=== PATIENT | female | born 1960 | race Caucasian/White ===

== ENCOUNTER → 2017-07-28 12:14 | Outpatient (CLI) | payer OTHER, SELFPAY ==
[2017-07-28 14:40] LABS: Absolute Lymphocyte Count 2.04 X10^3/ul (0.83-4.51); Absolute Neutrophil Count 5.6 X10^3/uL (2.0-7.7); Basophil# 0.04 X10^3/uL; Basophil% 0.5 % (0-1); Eosinophil# 0.27 X10^3/uL; Eosinophils% 3.2 % (0-5); Hematocrit 42.7 % (37-47); Hemoglobin 13.8 g/dl (12.0-15.0); Lymphocyte # 2.04 X10^3/ul (4.0); Lymphocyte % 24.1 % (19-41); Mean Corp Hgb Conc 32.3 g/gl (32-36); Mean Corpuscular Hgb 31.5 pg (27.0-32.0); Mean Corpuscular Volume 97.5 fL (81-99); Mean Platelet Vol. 10.3 fl (6.2-12.0); Monocyte% 5.9 % (0-10); Neutrophil # 5.59 X10^3/uL (2.7-7.7); Neutrophil % 65.8 % (47-70); POSITIVE COUNT NO; POSITIVE DIFFERENTIAL NO; POSITIVE MORPHOLOGY NO; Platelet Count 316 K/mm3 (150-450); RBC Distribution Width CV 13.9 % (11.6-14.6); Red Blood Count 4.38 M/mm3 (4.2-5.4); White Blood Count 8.5 K/mm3 (4.4-11.0)
[2017-07-28 14:58] LABS: ALB/GLOB Ratio 0.8 RATIO (0.9-2.4); AST(SGOT) 20 U/L (15-37); Alanine Aminotransfer ALT/SGPT 28 U/L (13-56); Albumin, Serum 3.4 g/dL (3.2-5.0); Alkaline Phosphatase 104 U/L (45-117); Anion Gap 5 (5-15); BUN 15 mg/dL (7-18); BUN/Creat Ratio 21.4 RATIO (10-20); Calcium,Total 8.4 mg/dL (8.5-10.1); Chloride 103 mmol/L (98-107); EST Glomerular Filtration Rate 91 mL/min (>60); Est Glom Filt Rate - Afr Amer 110 mL/min (>60); Glucose 131 mg/dL (74-106); Protein, Total 7.4 g/dL (6.4-8.2); Sodium Level 139 mmol/L (136-145)
== END ==
PROVIDERS: Family Provider Family Medicine; PCP Family Medicine; Visit Provider Internal Medicine Rheumatology
DX: M06.4 Inflammatory polyarthropathy (principal); M72.2 Plantar fascial fibromatosis; M15.9 Polyosteoarthritis, unspecified; Z79.899 Other long term (current) drug therapy
CPT/HCPCS: 36415; 80053; 85025

== ENCOUNTER → 2017-10-04 14:50 | Outpatient (CLI) | payer OTHER, SELFPAY ==
--- NOTE | 2017-10-04 14:50 | DT_ITS ---
This patient was seen during an EMR downtime September 27, 2017 - October 04, 2017. This patient may have a combination of paper and electronic documentation or all paper documentation. All documentation is viewable within the e-chart portion of [employer] for each patient visit.
[2017-10-04 16:03] LABS: Absolute Lymphocyte Count 1.86 X10^3/ul (0.83-4.51); Absolute Neutrophil Count 3.6 X10^3/uL (2.0-7.7); Basophil# 0.02 X10^3/uL; Basophil% 0.3 % (0-1); Eosinophil# 0.22 X10^3/uL; Eosinophils% 3.7 % (0-5); Hematocrit 43.6 % (37-47); Hemoglobin 13.7 g/dl (12.0-15.0); Lymphocyte # 1.86 X10^3/ul (4.0); Lymphocyte % 31.2 % (19-41); Mean Corp Hgb Conc 31.4 g/gl (32-36); Mean Corpuscular Hgb 30.5 pg (27.0-32.0); Mean Corpuscular Volume 97.1 fL (81-99); Mean Platelet Vol. 9.8 fl (6.2-12.0); Monocyte# 0.29 X10^3/uL; Monocyte% 4.9 % (0-10); Neutrophil # 3.57 X10^3/uL (2.7-7.7); Neutrophil % 59.7 % (47-70); Platelet Count 287 K/mm3 (150-450); RBC Distribution Width CV 14.1 % (11.6-14.6); RBC Distribution Width SD 50.3 fl (35.1-43.9); Red Blood Count 4.49 M/mm3 (4.2-5.4)
[2017-10-04 16:07] LABS: POSITIVE COUNT NO; POSITIVE DIFFERENTIAL NO; POSITIVE MORPHOLOGY NO
[2017-10-04 16:24] LABS: ALB/GLOB Ratio 0.9 RATIO (0.9-2.4); AST(SGOT) 15 U/L (15-37); Alanine Aminotransfer ALT/SGPT 23 U/L (13-56); Albumin, Serum 3.5 g/dL (3.2-5.0); Alkaline Phosphatase 101 U/L (45-117); Anion Gap 7 (5-15); BUN 14 mg/dL (7-18); BUN/Creat Ratio 18.8 RATIO (10-20); Calcium,Total 8.2 mg/dL (8.5-10.1); Chloride 106 mmol/L (98-107); Creatinine, Serum 0.74 mg/dL (0.55-1.02); EST Glomerular Filtration Rate 85 mL/min (>60); Est Glom Filt Rate - Afr Amer 103 mL/min (>60); Globulin 3.7 g/dL (2.2-4.2); Glucose 131 mg/dL (74-106); Potassium 3.8 mmol/L (3.5-5.1); Protein, Total 7.2 g/dL (6.4-8.2); Sodium Level 142 mmol/L (136-145)
== END ==
PROVIDERS: Family Provider Family Medicine; PCP Family Medicine; Visit Provider Internal Medicine Rheumatology
DX: M06.4 Inflammatory polyarthropathy (principal); Z79.899 Other long term (current) drug therapy; M15.9 Polyosteoarthritis, unspecified; M72.2 Plantar fascial fibromatosis; M17.0 Bilateral primary osteoarthritis of knee
CPT/HCPCS: 36415; 80053; 85025

== ENCOUNTER → 2018-01-03 16:24 | Outpatient (CLI) | payer OTHER, SELFPAY ==
[2018-01-03 18:05] LABS: Absolute Lymphocyte Count 2.43 X10^3/ul (0.83-4.51); Basophil# 0.03 X10^3/uL; Basophil% 0.3 % (0-1); Eosinophil# 0.15 X10^3/uL; Eosinophils% 1.6 % (0-5); Hematocrit 43.8 % (37-47); Lymphocyte # 2.43 X10^3/ul (4.0); Lymphocyte % 26.1 % (19-41); Mean Corpuscular Hgb 31.7 pg (27.0-32.0); Mean Corpuscular Volume 99.3 fL (81-99); Mean Platelet Vol. 9.8 fl (6.2-12.0); Monocyte# 0.68 X10^3/uL; Monocyte% 7.3 % (0-10); Neutrophil % 64.4 % (47-70); POSITIVE COUNT NO; POSITIVE DIFFERENTIAL NO; POSITIVE MORPHOLOGY NO; Platelet Count 323 K/mm3 (150-450); RBC Distribution Width CV 14.2 % (11.6-14.6); RBC Distribution Width SD 51.5 fl (35.1-43.9); Red Blood Count 4.41 M/mm3 (4.2-5.4); White Blood Count 9.3 K/mm3 (4.4-11.0)
[2018-01-03 18:38] LABS: ALB/GLOB Ratio 0.8 RATIO (0.9-2.4); AST(SGOT) 29 U/L (15-37); Alanine Aminotransfer ALT/SGPT 49 U/L (13-56); Albumin, Serum 3.4 g/dL (3.2-5.0); Alkaline Phosphatase 105 U/L (45-117); Anion Gap 10 (5-15); BUN 19 mg/dL (7-18); BUN/Creat Ratio 25.3 RATIO (10-20); Calcium,Total 8.6 mg/dL (8.5-10.1); Chloride 106 mmol/L (98-107); Creatinine, Serum 0.75 mg/dL (0.55-1.02); EST Glomerular Filtration Rate 84 mL/min (>60); Est Glom Filt Rate - Afr Amer 102 mL/min (>60); Glucose 111 mg/dL (74-106); Potassium 4.1 mmol/L (3.5-5.1); Protein, Total 7.4 g/dL (6.4-8.2); Sodium Level 144 mmol/L (136-145)
== END ==
PROVIDERS: Family Provider Family Medicine; PCP Family Medicine; Visit Provider Internal Medicine Rheumatology
DX: M06.4 Inflammatory polyarthropathy (principal); M72.2 Plantar fascial fibromatosis; M17.0 Bilateral primary osteoarthritis of knee; Z79.899 Other long term (current) drug therapy
CPT/HCPCS: 36415; 80053; 85025

== ENCOUNTER → 2018-03-31 14:14 | Outpatient (CLI) | payer OTHER, SELFPAY ==
[2018-03-31 15:26] LABS: Absolute Lymphocyte Count 1.86 X10^3/ul (0.83-4.51); Absolute Neutrophil Count 3.5 X10^3/uL (2.0-7.7); Basophil# 0.03 X10^3/uL; Basophil% 0.5 % (0-1); Eosinophil# 0.12 X10^3/uL; Hematocrit 43.3 % (37-47); Hemoglobin 14.2 g/dl (12.0-15.0); Lymphocyte # 1.86 X10^3/ul (4.0); Lymphocyte % 31.4 % (19-41); Mean Corp Hgb Conc 32.8 g/gl (32-36); Mean Corpuscular Hgb 32.1 pg (27.0-32.0); Mean Platelet Vol. 9.7 fl (6.2-12.0); Monocyte# 0.36 X10^3/uL; Monocyte% 6.1 % (0-10); Neutrophil # 3.54 X10^3/uL (2.7-7.7); Neutrophil % 59.7 % (47-70); Platelet Count 310 K/mm3 (150-450); RBC Distribution Width CV 13.8 % (11.6-14.6); RBC Distribution Width SD 48.6 fl (35.1-43.9); Red Blood Count 4.42 M/mm3 (4.2-5.4); White Blood Count 5.9 K/mm3 (4.4-11.0)
[2018-03-31 15:30] LABS: POSITIVE COUNT NO; POSITIVE DIFFERENTIAL NO; POSITIVE MORPHOLOGY NO
[2018-03-31 15:54] LABS: ALB/GLOB Ratio 0.9 RATIO (0.9-2.4); AST(SGOT) 17 U/L (15-37); Alanine Aminotransfer ALT/SGPT 27 U/L (13-56); Albumin, Serum 3.5 g/dL (3.2-5.0); Alkaline Phosphatase 90 U/L (45-117); Anion Gap 6 (5-15); BUN 14 mg/dL (7-18); BUN/Creat Ratio 19.4 RATIO (10-20); Calcium,Total 8.9 mg/dL (8.5-10.1); Chloride 105 mmol/L (98-107); Creatinine, Serum 0.72 mg/dL (0.55-1.02); EST Glomerular Filtration Rate 88 mL/min (>60); Est Glom Filt Rate - Afr Amer 106 mL/min (>60); Glucose 100 mg/dL (74-106); Potassium 4.1 mmol/L (3.5-5.1); Protein, Total 7.5 g/dL (6.4-8.2); Sodium Level 142 mmol/L (136-145)
== END ==
PROVIDERS: Family Provider Family Medicine; PCP Family Medicine; Referring Provider Internal Medicine Rheumatology; Visit Provider Internal Medicine Rheumatology
DX: M06.4 Inflammatory polyarthropathy (principal); M72.2 Plantar fascial fibromatosis; M17.0 Bilateral primary osteoarthritis of knee; Z79.899 Other long term (current) drug therapy
CPT/HCPCS: 36415; 80053; 85025

== ENCOUNTER → 2018-07-04 14:51 | Outpatient (CLI) | payer OTHER, SELFPAY ==
[2018-07-11 12:27] LABS: HPV Reflexed? NOT INDICATED
== END ==
PROVIDERS: Visit Provider Obstetrics & Gynecology
DX: Z12.4 Encounter for screening for malignant neoplasm of cervix (principal)
CPT/HCPCS: 88175; G0145

== ENCOUNTER → 2018-07-18 14:43 | Outpatient (CLI) | payer OTHER, SELFPAY ==
[2018-07-18 17:47] LABS: Absolute Lymphocyte Count 2.33 X10^3/ul (0.83-4.51); Absolute Neutrophil Count 5.3 X10^3/uL (2.0-7.7); Basophil# 0.03 X10^3/uL; Basophil% 0.4 % (0-1); Eosinophil# 0.14 X10^3/uL; Eosinophils% 1.7 % (0-5); Hematocrit 43.6 % (37-47); Hemoglobin 13.9 g/dl (12.0-15.0); Lymphocyte # 2.33 X10^3/ul (4.0); Lymphocyte % 27.9 % (19-41); Mean Corp Hgb Conc 31.9 g/gl (32-36); Mean Corpuscular Hgb 31.4 pg (27.0-32.0); Mean Corpuscular Volume 98.4 fL (81-99); Monocyte# 0.51 X10^3/uL; Monocyte% 6.1 % (0-10); Neutrophil # 5.31 X10^3/uL (2.7-7.7); Neutrophil % 63.7 % (47-70); Platelet Count 319 K/mm3 (150-450); RBC Distribution Width CV 14.1 % (11.6-14.6); RBC Distribution Width SD 50.7 fl (35.1-43.9); Red Blood Count 4.43 M/mm3 (4.2-5.4); White Blood Count 8.3 K/mm3 (4.4-11.0)
[2018-07-18 18:04] LABS: POSITIVE COUNT NO; POSITIVE DIFFERENTIAL NO; POSITIVE MORPHOLOGY NO
[2018-07-18 18:09] LABS: ALB/GLOB Ratio 0.9 RATIO (0.9-2.4); AST(SGOT) 21 U/L (15-37); Alanine Aminotransfer ALT/SGPT 59 U/L (13-56); Albumin, Serum 3.5 g/dL (3.2-5.0); Alkaline Phosphatase 90 U/L (45-117); Anion Gap 3 (5-15); BUN 16 mg/dL (7-18); BUN/Creat Ratio 18.6 RATIO (10-20); Calcium,Total 8.3 mg/dL (8.5-10.1); Chloride 105 mmol/L (98-107); Creatinine, Serum 0.86 mg/dL (0.55-1.02); EST Glomerular Filtration Rate 72 mL/min (>60); Est Glom Filt Rate - Afr Amer 87 mL/min (>60); Globulin 3.8 g/dL (2.2-4.2); Glucose 96 mg/dL (74-106); Potassium 3.7 mmol/L (3.5-5.1); Protein, Total 7.3 g/dL (6.4-8.2); Sodium Level 138 mmol/L (136-145)
== END ==
PROVIDERS: Family Provider Family Medicine; PCP Family Medicine; Referring Provider Internal Medicine Rheumatology; Visit Provider Internal Medicine Rheumatology
DX: M06.4 Inflammatory polyarthropathy (principal); M72.2 Plantar fascial fibromatosis; M17.0 Bilateral primary osteoarthritis of knee; Z79.899 Other long term (current) drug therapy
CPT/HCPCS: 36415; 80053; 85025

== ENCOUNTER → 2018-08-01 | Outpatient (CLI) | payer OTHER, SELFPAY ==
--- NOTE | 2018-08-01 13:02 | BI_ITS ---
MAMMOGRAPHY - BILATERAL SCREENING REASON FOR EXAM: Female, 57 years old. Routine annual screening examination. PERTINENT HISTORY: Non-contributory. TECHNIQUE: Digital bilateral breast meek (3D mammographic acquisition) in the CC and MLO projections. 2-D mediolateral oblique (MLO) and craniocaudad (CC) views of both breasts were obtained. CAD: Full Field Digital Mammography with Computer Added Detection was performed. COMPARISON: Comparison is made with prior study dated November 25, 2016 and February 27, 2015. FINDINGS: Breast Composition: There are scattered areas of fibroglandular density. There are no dominant masses or suspicious calcifications. Stable benign-appearing bilateral axillary lymph nodes. No other significant abnormalities are identified. There has been no significant change since the prior study. BI/SCREENING MAMM (CAD), BILAT IMPRESSION: Stable bilateral screening mammogram. Yearly follow-up mammogram recommended. (A) ASSESSMENT CATEGORY: BIRADS Category 2: Benign. A letter regarding these results will be sent to the patient by the facility within 30 days. Approximately 10% of breast cancers are not detected by mammography. A normal mammogram should not delay biopsy of a clinically suspicious abnormality. [id number] Electronically Signed: Sherif Hawkins, at 15:59 EDT , Service support ,
== END | disposition home or self-care (01) ==
LOC: OPBI 13:01
PROVIDERS: Family Provider Family Medicine; PCP Family Medicine; Referring Provider Obstetrics & Gynecology; Visit Provider Obstetrics & Gynecology
DX: Z12.31 Encounter for screening mammogram for malignant neoplasm of breast (principal)
CPT/HCPCS: 77063; 77067

== ENCOUNTER → 2019-08-16 | Outpatient (CLI) | payer OTHER, SELFPAY | END | disposition home or self-care (01) | PROVIDERS: PCP Family Medicine; Referring Provider Otolaryngology; Visit Provider Otolaryngology | DX: R05 Cough (principal) | CPT/HCPCS: 87070; 87077; 87106; 87107; 87205 ==

== ENCOUNTER 2019-08-18 11:09 | Emergency (ER) | payer OTHER, SELFPAY ==
[2019-08-18] VITALS (7 sets, daily range): BP systolic 144–192; BP diastolic 75–114; PULSE 89–113; RESP 15–23; TEMP 36.7–36.9; O2SAT 93–97; BMI 39.1
--- NOTE | 2019-08-18 11:39 | EKG12_ITS ---
Test Reason : COUGH Blood Pressure : / mmHG Vent. Rate : 089 BPM Atrial Rate : 089 BPM P-R Int : 170 ms QRS Dur : 078 ms QT Int : 382 ms P-R-T Axes : 062 035 022 degrees QTc Int : 464 ms Normal sinus rhythm Normal ECG Confirmed by JOE VALVERDE, JANAE ([id number]), photographic editor AUDREY ARNOLD ([id number]) on 08/21/2019 10:08:46 AM Referred By: YISEL Confirmed By:JANAE DIAZ MD
--- NOTE | 2019-08-18 11:39 | RAD_ITS ---
STUDY: X-RAY CHEST REASON FOR EXAM: Female, 58 years old. COUGH,SOB X 1 WEEK TECHNIQUE: Single AP portable view of the chest. COMPARISON: None. FINDINGS: EKG electrodes are seen. The lungs are clear and expanded. There is no demonstrated pleural abnormality. Normal size heart. Normal mediastinum and cristine. Normal visualized pulmonary arteries. Normal visualized aortic arch and descending thoracic aorta. There are diffuse degenerative changes of the visualized thoracic spine. Evidence of prior right rotator cuff surgery. There is no demonstrated abnormality of the visualized soft tissue structures of the upper abdomen. RAD/Chest 1 View (Portable) IMPRESSION: No acute abnormalities. Electronically Signed: Sherif Hawkins, at 13:12 EDT , Service support ,
[2019-08-18 12:32] LABS: Absolute Lymphocyte Count 0.95 X10^3/uL (0.83-4.51); Absolute Neutrophil Count 3.8 X10^3/uL (2.0-7.7); Basophil# 0.04 X10^3/uL; Basophil% 0.7 % (0-1); Eosinophil# 0.62 X10^3/uL; Eosinophils% 10.7 % (0-5); Hematocrit 47.2 % (37-47); Hemoglobin 15.3 g/dL (12.0-15.0); Lymphocyte # 0.95 X10^3/ul (4.0); Lymphocyte % 16.4 % (19-41); Mean Corp Hgb Conc 32.4 g/dL (32-36); Mean Corpuscular Volume 92.5 fL (81-99); Mean Platelet Vol. 9.5 fl (6.2-12.0); Monocyte# 0.38 X10^3/uL; Monocyte% 6.6 % (0-10); NRBC Flagged by Analyzer 0 % (0-5); Neutrophil # 3.78 X10^3/uL (2.7-7.7); Neutrophil % 65.3 % (47-70); Platelet Count 308 K/mm3 (150-450); RBC Distribution Width SD 44.2 fl (35.1-43.9); White Blood Count 5.8 K/mm3 (4.4-11.0)
[2019-08-18 12:36] LABS: Lactic Acid 1.5 mmol/L (0.4-1.9)
[2019-08-18 12:39] LABS: Anion Gap 4 (5-15); BUN 12 mg/dL (7-18); BUN/Creat Ratio 13.8 RATIO (10-20); Chloride 104 mmol/L (98-107); Creatinine, Serum 0.87 mg/dL (0.55-1.02); EST Glomerular Filtration Rate 71 mL/min (>60); Est Glom Filt Rate - Afr Amer 86 mL/min (>60); Estimated Creatinine Clearance 52.54 ml/min; Glucose 144 mg/dL (74-106); Potassium 3.7 mmol/L (3.5-5.1); Sodium Level 138 mmol/L (136-145)
[2019-08-18 13:05] LABS: BNP,B-Type NATRIURETIC PEPTIDE 4.1 pg/mL (0-100)
[2019-08-18] MEDS: Ipratropium/Albuterol Sulfate 3 ML AMPUL.NEB INHALATION (13:25)
[2019-08-18] MEDS: MethylPREDNISolone 125 MG/2 ML Vial IV (13:59)
[2019-08-18] MEDS: predniSONE 20 MG Tablet 40 MG PO (15:22)
[2019-08-18] MEDS: Azithromycin 250 MG Tablet 500 MG PO (15:22)
[2019-08-18] MEDS: Doxycycline 100 MG CAPSULE PO (15:29)
--- NOTE | 2019-08-18 15:42 | ED.DCSUM_ITS ---
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 She denies any history of lung problems. No asthma or COPD. She does not smoke. However, she reports she has a cough that began 3 weeks ago. It is productive of brown sputum without blood. She reports that she has been wheezing and felt very short of breath. Patient complains of an upper chest pressure that is been constant for the past 2 weeks. States is increased with the breaths because it makes me feel like I am going to cough. It is 8 out of 10 currently and at worst. Patient reports she is also had sinus drainage for the past 2 weeks. She began Omnicef 2 days ago for sinusitis. She denies any fever or chills. 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 She has had sick contacts at work, she does not know about exposure to coronavirus. Physical Examination: Vitals: Stable. Afebrile. General: Well-nourished and well-developed. Head: Normocephalic atraumatic. Neck: Supple, no lymphadenopathy. No JVD. Nontender. Cardiovascular: Regular rate and rhythm. No murmurs. Respiratory: Mild respiratory distress with moderate wheezing bilaterally. Abdominal: Soft, nontender, nondistended, normal bowel sounds. No guarding, rebound, or peritoneal signs. Back: Nontender. Extremities: Nontender, no edema. Skin: Normal color, no rash. Neurologic: Alert and oriented ?3. Cranial nerves II through XII are intact. Normal strength and sensation. Psych: Normal affect. Test Results: EKG is sinus at [address] changes. Troponin is negative. BNP is 4.1. Influenza is negative. Respiratory panel is negative. Chem-7 shows a glucose 144. Lactic acid is 1.5. CBC shows an H&H of 15.3 and 47.2. Lymphocytes of 16 and eosinophils of 11. Clinical Impression(s) from Imaging Studies Chest X-Ray 08/18/19 11:39 IMPRESSION: No acute abnormalities. Electronically Signed: Sherif Hawkins, at 13:12 EDT , Service support , Emergency Department Course and Treatment: Patient was given albuterol and Atrovent aerosols. She is given Solu-Medrol IV and doxycycline p.o. She was discussed with the [facility]. Unfortunately she does not meet criteria for testing for coronavirus. However, after discussion with the nurse malted milk supervisor in the emergency department the [facility] 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 This was reviewed on up-to-date and given the possibility of chlamydia psittacosis she was changed from Zithromax to doxycycline. Treatment Plan: The patient was discussed with Dr. Saleh. He states that he would be happy to see her in the lung clinic next week. He would like her to be placed on Symbicort. She also given a prescription for prednisone, doxycycline, and an albuterol MDI. Instructed to return the emerge part for any worsening symptoms. Disposition: To home in improved and stable condition. Impression: 1. URI. 2. Bronchospasm. This note was generated with [employer] dictation software. It may contain incorrect words, spelling, and punctuation that were not noted in review of the chart prior to signing ED Disposition - Plan for ED Patient: Disposition: Home or Assisted Living Instructions: ED Upper Resp Infec Abx Tx Prescriptions: Prednisone [Deltasone] 40 mg PO DAILY #10 tab Prescription Printed Doxycycline 100 mg PO BID #14 cap Prescription Printed Budesonide/Formoterol Fumarate [Symbicort 80-4.5 Mcg Inhaler] 1 puff IH BID #1 [email or web address] Prescription Printed Referrals: Duong Saleh DO [STAFF PHYSICIAN] - 3-5 Days
== END 2019-08-18 16:04 | disposition home or self-care (01) ==
LOC: ED 12:10
PROVIDERS: Emergency Provider Emergency Medicine
DX: J06.9 Acute upper respiratory infection, unspecified (principal); J98.01 Acute bronchospasm
CPT/HCPCS: 71045; 80048; 83605; 83880; 84484; 85025; 87040; 87633; 87635; 87804; 93005; 94640; 96374; 99251; 99285; A4216; G0463; U0004

== ENCOUNTER → 2019-08-29 09:50 | Outpatient (CLI) | payer OTHER, SELFPAY ==
[2019-08-18 11:12] VITALS: BMI 39.1
[2019-08-29 13:05] LABS: Vitamin D,25 Hydroxy 23.8 ng/mL
[2019-08-29 13:10] LABS: Anion Gap 4 (5-15); BUN 14 mg/dL (7-18); BUN/Creat Ratio 17.4 RATIO (10-20); Calcium,Total 9.3 mg/dL (8.5-10.1); Chloride 108 mmol/L (98-107); Cholesterol 223 mg/dL (200); EST Glomerular Filtration Rate 78 mL/min (>60); Est Glom Filt Rate - Afr Amer 94 mL/min (>60); Glucose 111 mg/dL (74-106); High Density Lipoprotein 53 mg/dL; Potassium 3.8 mmol/L (3.5-5.1); Sodium Level 141 mmol/L (136-145); Triglycerides 168 mg/dL; Very Low Density Lipoprotein 34 mg/dL (5-40)
== END ==
PROVIDERS: PCP Family Medicine; Referring Provider Family Medicine; Visit Provider Family Medicine
DX: Z00.00 Encounter for general adult medical examination without abnormal findings (principal)
CPT/HCPCS: 36415; 80048; 80061; 82306

== ENCOUNTER → 2019-09-20 12:36 | Outpatient (CLI) | payer OTHER, SELFPAY ==
[2019-08-18 11:12] VITALS: BMI 39.1
--- NOTE | 2019-09-20 12:38 | BI_ITS ---
MAMMOGRAPHY - BILATERAL SCREENING REASON FOR EXAM: Female, 58 years old. Routine annual screening examination. PERTINENT HISTORY: Non-contributory. TECHNIQUE: Digital bilateral breast kalyn (3D mammographic acquisition) in the CC and MLO projections. 2-D mediolateral oblique (MLO) and craniocaudad (CC) views of both breasts were obtained. CAD: Full Field Digital Mammography with Computer Added Detection was performed. COMPARISON: Comparison is made with prior examination dated August 01, 2018 and November 25, 2016. FINDINGS: Breast Composition: There are scattered areas of fibroglandular density. There are no dominant masses or suspicious calcifications. Stable benign-appearing bilateral axillary lymph nodes. No other significant abnormalities are identified. There has been no significant change since the prior study. BI/SCREEN MAMM (CAD) W/KALYN BILAT IMPRESSION: Stable bilateral screening mammogram. Yearly follow-up mammogram recommended. (A) ASSESSMENT CATEGORY: BIRADS Category 2: Benign. A letter regarding these results will be sent to the patient by the facility within 30 days. Approximately 10% of breast cancers are not detected by mammography. A normal mammogram should not delay biopsy of a clinically suspicious abnormality. [id number] Electronically Signed: Sherif Hawkins, at 13:42 EDT , Service support ,
== END ==
PROVIDERS: PCP Family Medicine; Referring Provider Family Medicine; Visit Provider Family Medicine
DX: Z12.31 Encounter for screening mammogram for malignant neoplasm of breast (principal)
CPT/HCPCS: 77063; 77067

== ENCOUNTER 2019-10-09 05:10 | Emergency (ER) | payer OTHER, SELFPAY ==
[2019-08-18 11:12] VITALS: BMI 39.1
[2019-10-09 05:10] VITALS: BP 198/102; PULSE 104; RESP 26; TEMP 36.4; O2SAT 94; BMI 38.0
[2019-10-09 05:13] VITALS: BP 183/97; PULSE 98; RESP 19; TEMP 36.9; O2SAT 100
--- NOTE | 2019-10-09 05:13 | EKG12_ITS ---
Test Reason : SHORTNESS OF BREATH Blood Pressure : / mmHG Vent. Rate : 102 BPM Atrial Rate : 102 BPM P-R Int : 176 ms QRS Dur : 086 ms QT Int : 356 ms P-R-T Axes : 068 064 038 degrees QTc Int : 463 ms Sinus tachycardia Otherwise normal ECG Confirmed by JOE VALVERDE, JANAE ([id number]), sound editor AUDREY ARNOLD ([id number]) on 10/10/2019 11:15:02 AM Referred By: MELA Confirmed By:JANAE DIAZ MD
[2019-10-09 05:18] VITALS: O2SAT 98
[2019-10-09 05:21] LABS: Absolute Lymphocyte Count 1.94 X10^3/uL (0.83-4.51); Absolute Neutrophil Count 3.5 X10^3/uL (2.0-7.7); Basophil# 0.04 X10^3/uL; Basophil% 0.6 % (0-1); Eosinophil# 0.57 X10^3/uL; Eosinophils% 8.7 % (0-5); Hematocrit 47.3 % (37-47); Hemoglobin 15.3 g/dL (12.0-15.0); Lymphocyte # 1.94 X10^3/ul (4.0); Lymphocyte % 29.5 % (19-41); Mean Corp Hgb Conc 32.3 g/dL (32-36); Mean Corpuscular Hgb 30.4 pg (27.0-32.0); Mean Corpuscular Volume 93.8 fL (81-99); Mean Platelet Vol. 9.4 fl (6.2-12.0); Monocyte# 0.47 X10^3/uL; Monocyte% 7.1 % (0-10); NRBC Flagged by Analyzer 0 % (0-5); Neutrophil # 3.54 X10^3/uL (2.7-7.7); Neutrophil % 53.8 % (47-70); Platelet Count 291 K/mm3 (150-450); RBC Distribution Width CV 13.4 % (11.6-14.6); Red Blood Count 5.04 M/mm3 (4.2-5.4); White Blood Count 6.6 K/mm3 (4.4-11.0)
--- NOTE | 2019-10-09 05:24 | CT_ITS ---
STUDY: CTA CHEST REASON FOR EXAM: Female, 59 years old. DYSPNEA/COUGH/SINUS CONGESTION. No chest or back pain RADIATION DOSAGE (If Supplied By Facility): CTDIvol = ( 12.67 ) mGy, DLP = ( 527.59 ) mGycm TECHNIQUE: The examination was performed with the intravenous administration of Isovue 300 100ml. Post-processing of the angiographic images was performed, with multiplanar reformation and 3D reconstruction. Individualized dose optimization techniques were used for this CT. COMPARISON: None. FINDINGS: Normal enhancement of the main pulmonary artery and right and left pulmonary arteries. Normal enhancement of the bilateral peripheral pulmonary arteries. There is no demonstrated pulmonary embolism. Normal thoracic aorta and visualized great vessels. There is no demonstrated aortic dissection. Normal heart and pericardium. Normal mediastinum. There are borderline bilateral hilar lymph nodes, which may represent reactive lymphadenopathy. Normal visualized trachea and bronchi. The lungs are well expanded. Normal pulmonary parenchyma. Normal pleura. Normal chest wall structures. Normal osseous structures. There is a partially calcified stone in the gallbladder measures [address]/CTA Chest W/WO Contrast IMPRESSION: No demonstrated pulmonary embolism or arterial dissection. Cholelithiasis. Electronically Signed: Srinivasa Cason, at 6:39 EDT Tel , Service support ,
--- NOTE | 2019-10-09 05:26 | ED.VISSUMM ---
- ER Visit Summary Date of Service: 10/09/19 Chief Complaint: Shortness of breath and wheezing History of Present Illness: The patient is a 59 F history of hypertension. Patient states for last 6 months she has had intermittent episodes of nonproductive dry cough and wheezing. She has been on several different antibiotics and prednisone. Says at times she gets better and at other times it flares up again. She seen her primary care physician and does not have a specific diagnosis. Currently she is on Levaquin. Says her shortness of breath and wheezing is gotten worse the last several days. No fever. No hemoptysis. No history of DVT or PE. No leg pain or swelling. No recent travel, surgery or immobilization. Her last hospitalization was a year ago. Physical Examination: Older female actively wheezing. Vital signs are stable. Her pulse ox is 94% on room air no signs of hypoxia. H EENT exam unremarkable. Posterior pharynx moist and pink. No erythema or exudate. Neck nontender no JVD. No lymphadenopathy. Lungs inspiratory next Tory wheezing throughout bilateral. Heart regular rhythm rate about 100 - 105 no murmur. Abdomen soft nontender normal bowel sounds no peritoneal signs. Extremities moves all 4. Calves are nontender without edema or cords. Neurologically she is awake and alert. Test Results: Portable chest x-ray 1 view read both by myself and radiologist shows no acute abnormality and is completely unchanged from prior chest x-ray from July. EKG sinus tachycardia rate of 102 no acute signs of TN or ischemia and again unchanged from her prior. CBC normal white count of 6. Hemoglobin 15. Chemistries unremarkable normal creatinine gap. Troponin normal. Due to the length of patient's symptoms and no known etiology I did obtain a CTA of her chest read both by myself the radiologist shows no acute abnormality. No PE or dissection. Emergency Department Course and Treatment: 59-year-old female with intermittent episodes for last 6 months of nonproductive cough with wheezing. She has been treated with antibiotics and at times it improves. She has had no new environmental changes at her home and has a never had problem with allergies before. Will be treated with albuterol and DuoNeb aerosols. Started on and 125 mg of Solu-Medrol. Work-up including CAT scan of the performed. On repeat exam at 6:20 AM patient is improving with aerosols and steroids. After discussing this with her at length I think this may be an allergic phenomenon that she is having. It has been intermittent for 6 months. She has bronchospasm and nasal drainage. She HAs never had a fever. She has had no significant production with the cough. The current antibiotic she is on Levaquin is given her limited to no relief. Treatment Plan: Prednisone daily 40 mg a day for 10 days. She may stop the Levaquin. Follow-up with her primary care physician. Patient needs referral to a door to door lead generation. She may also need allergy testing. Disposition: Discharge Impression: Dyspnea with wheezing Secondary to allergic etiology This note was generated with [employer] dictation software. It may contain incorrect words, spelling, and punctuation that were not noted in review of the chart prior to signing ED Disposition - Plan for ED Patient: Referrals: Gareth Cifuentes MD [Primary Care Provider] -
--- NOTE | 2019-10-09 05:30 | RAD_ITS ---
STUDY: X-RAY CHEST REASON FOR EXAM: Female, 59 years old. patient with increased shortness of breath today. patient has had cough and shortness of breath since april, and has had multiple rounds of antibiotics. TECHNIQUE: Single AP portable view of the chest. COMPARISON: None. FINDINGS: The lungs are clear and expanded. There is no demonstrated pleural abnormality. Normal size heart. Normal mediastinum and cristine. Normal visualized pulmonary arteries. Normal visualized aortic arch and descending thoracic aorta. There are diffuse degenerative changes of the visualized thoracic spine. There is degenerative osteoarthritis of the bilateral shoulders. There is no demonstrated abnormality of the visualized soft tissue structures of the upper abdomen. RAD/Chest 1 View (Portable) IMPRESSION: Degenerative changes, as described above. No demonstrated acute cardiopulmonary process. Electronically Signed: Srinivasa Cason, at 5:45 EDT Tel , Service support ,
[2019-10-09 05:38] LABS: Anion Gap 7 (5-15); BUN 19 mg/dL (7-18); BUN/Creat Ratio 24.9 RATIO (10-20); Calcium,Total 9.2 mg/dL (8.5-10.1); Chloride 105 mmol/L (98-107); Creatinine, Serum 0.76 mg/dL (0.55-1.02); EST Glomerular Filtration Rate 82 mL/min (>60); Est Glom Filt Rate - Afr Amer 99 mL/min (>60); Glucose 131 mg/dL (74-106); Potassium 3.4 mmol/L (3.5-5.1); Sodium Level 142 mmol/L (136-145)
[2019-10-09] MEDS: Ipratropium/Albuterol Sulfate 3 ML AMPUL.NEB INHALATION (05:38)
[2019-10-09] MEDS: MethylPREDNISolone 125 MG/2 ML Vial IV (05:38)
[2019-10-09 05:40] VITALS: PULSE 101; RESP 23
--- NOTE | 2019-10-09 06:25 | ED.DEP ---
ED Disposition - Plan for ED Patient: Disposition: Home or Assisted Living Instructions: ED Wheezing Prescriptions: Prednisone [Deltasone] 40 mg PO DAILY 10 Days #10 tab Prescription Printed Referrals: Gareth Cifuentes MD [Primary Care Provider] - As soon as possible Jacob Browne MD [STAFF PHYSICIAN] - As soon as possible Additional Instructions: Prednisone daily 40 mg for the next 10 days. I think this is secondary to possibly an allergic reaction. You can stop the current antibiotic Levaquin. Follow-up with your primary care physician, follow-up with 1 of the local slip bridge operator I referred you to Dr. Jacob Browne. You may also need allergy testing.
[2019-10-09 07:14] VITALS: BP 189/117; PULSE 95; PULSE 96; RESP 18; RESP 22; O2SAT 97
== END 2019-10-09 07:21 | disposition home or self-care (01) ==
PROVIDERS: Emergency Provider Emergency Medicine; PCP Family Medicine
DX: R06.00 Dyspnea, unspecified (principal); I10 Essential (primary) hypertension
CPT/HCPCS: 71045; 71275; 80048; 84484; 85025; 93005; 94640; 99284; Q9967; A4216

== ENCOUNTER → 2019-11-24 12:42 | Outpatient (CLI) | payer OTHER, SELFPAY ==
--- NOTE | 2019-11-25 08:52 | PFT ---
INTRODUCTION: The patient is a 59-year-old female that presents for pulmonary function studies secondary to a diagnosis of asthma. Respiratory therapy reports good patient effort. Bronchodilators were used during testing. INTERPRETATION: Forced expiration spirometry demonstrates the presence of a moderate large airways obstructive ventilatory defect. There was no significant response to aerosolized bronchodilators. Spirograms are of good quality and plateau gradually. Body plethysmography was performed and reveals an elevated RV to 179% of predicted, indicative of underlying air trapping. Diffusing capacity by single breath CO was within normal limits. IMPRESSION: Irreversible moderate large airways obstructive ventilatory defect with associated air trapping and preserved diffusing capacity.
== END ==
PROVIDERS: PCP Family Medicine; Referring Provider Internal Medicine Critical Care Medicine; Visit Provider Internal Medicine Critical Care Medicine
DX: R06.02 Shortness of breath (principal)
CPT/HCPCS: 94060; 94726; 94729

== ENCOUNTER → 2019-12-11 12:06 | Outpatient (CLI) | payer OTHER, SELFPAY ==
[2019-12-11 10:39] VITALS: BMI 38.0
== END ==
PROVIDERS: PCP Family Medicine; Referring Provider Internal Medicine Critical Care Medicine; Visit Provider Internal Medicine Critical Care Medicine
DX: J47.9 Bronchiectasis, uncomplicated (principal)
CPT/HCPCS: 94667

== ENCOUNTER → 2019-12-29 13:49 | Outpatient (CLI) | payer OTHER, SELFPAY ==
[2019-12-11 10:39] VITALS: BMI 38.0
--- NOTE | 2019-12-29 13:51 | CT_ITS ---
STUDY: CT BRAIN AND SINUSES WITHOUT CONTRAST REASON FOR EXAM: Female, 59 years old. Sinusitis x 8 months. Hx hypertension. [employer] navigation protocol. RADIATION DOSAGE (If Supplied By Facility): CTDIvol = ( 33.06 ) mGy, DLP = ( 776.00 ) mGycm TECHNIQUE: Transaxial CT imaging of the brain was performed without administration of contrast. Individualized dose optimization techniques were used for this CT. COMPARISON: No relevant priors. FINDINGS: CT BRAIN Normal soft tissue structures. Normal calvarium. Normal size ventricles and extra-axial spaces for the patient''s age. Normal white matter tracts of the cerebral hemispheres. Normal basal ganglia and thalami. Normal brainstem. Normal cerebellum. There is no intracranial hemorrhage. There are no findings of an acute ischemic infarction. CT SINUSES Post Surgical Changes: None. Frontal Sinus and Recess: Opacification of the frontal sinuses. Ethmoidal Sinuses: Opacification of the ethmoid sinuses with thinning of the bony septations. Maxillary Sinuses: Hypoplasia of the right maxillary sinus. Opacification of the maxillary sinus bilaterally more prominent on the right side. Ostiomeatal Complex: Mucosal obliteration of the bilateral maxillary infundibuli. Sphenoid Sinus: Opacification of the sphenoid sinus bilaterally worse on the left side. Sphenoethmoidal Recess: Clear. Nasal Turbinate (Right): Middle Turbinate (Right): Normal. Middle Turbinate (Left): Normal. Inferior Turbinate (Right): Hypertrophy of the right inferior nasal turbinate. Inferior Turbinate (Left): Hypertrophy of the left inferior nasal turbinate. Nasal Septum: Midline. Nasal Airway: Clear. Cribiform Plate / Anterior Cranial Fossa: Normal. Orbits: Normal. CT/Sinus/Facial Bone IMPRESSION: LAWRENCE sinusitis. Electronically Signed: Sherif Hawkins, at 14:24 EDT , Service support ,
== END ==
PROVIDERS: PCP Family Medicine; Referring Provider Otolaryngology; Visit Provider Otolaryngology
DX: J32.9 Chronic sinusitis, unspecified (principal)
CPT/HCPCS: 70486

== ENCOUNTER → 2020-01-23 13:08 | Outpatient (CLI) | payer OTHER, SELFPAY ==
[2020-01-23 10:32] VITALS: BMI 38.0
[2020-01-26 04:36] LABS: HPV APTIMA, High Risk Negative (Negative)
== END ==
PROVIDERS: PCP Family Medicine; Referring Provider Nurse Practitioner Women's Health; Visit Provider Nurse Practitioner Women's Health
DX: Z12.4 Encounter for screening for malignant neoplasm of cervix (principal)
CPT/HCPCS: 87624; 88175; G0145

== ENCOUNTER → 2020-01-26 08:46 | Outpatient (CLI) | payer OTHER, SELFPAY ==
[2020-01-23 10:32] VITALS: BMI 38.0
--- NOTE | 2020-01-26 08:46 | US_ITS ---
STUDY: ULTRASOUND BREAST - RIGHT REASON FOR EXAM: Female, 59 years old. Palpable lump in the right breast. TECHNIQUE: Axial and longitudinal images of the RIGHT breast were performed with a high resolution ultrasound transducer. # OF IMAGES: 43 COMPARISON: Comparison is made with prior mammogram done earlier today. FINDINGS: RIGHT Breast: Multiple echogenic nodules are seen in the right upper quadrant. The largest measures 5.1 sinus by 3.3 signs by 2.1 cm. This is at the 1 o''clock position of the breast at 3 cm from the nipple. This most likely represents a lipoma US/Breast Limited Unilateral IMPRESSION: Multiple echogenic nodules are seen in the upper-outer quadrant of the right breast as described. 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 The largest measures 5.1 cm x 3.3 cm x 2.1 cm. ASSESSMENT CATEGORY: BIRADS Category 2: Benign. A letter regarding these results will be sent to the patient by the facility within 30 days. Electronically Signed: Sherif Hawkins, at 10:34 EDT , Service support ,
--- NOTE | 2020-01-26 08:46 | BI_ITS ---
MAMMOGRAPHY - UNILATERAL DIAGNOSTIC: RIGHT BREAST REASON FOR EXAM: Female, 59 years old. Palpable abnormality in the upper outer quadrant of the right breast. PERTINENT HISTORY: Non-contributory. TECHNIQUE: Digital unilateral breast meek (3D mammographic acquisition) in the CC and MLO projections. 2-D mediolateral oblique (MLO) and craniocaudad (CC) views of both breasts were obtained. CAD: Full Field Digital Mammography with Computer Added Detection was performed. COMPARISON: Comparison is made with prior study of 09/20/2019. FINDINGS: Breast Composition: There are scattered areas of fibroglandular density. There are no dominant masses or suspicious calcifications. Stable benign-appearing axillary lymph nodes. No other significant abnormalities are identified. There has been no significant change since the prior study. BI/DIAG MAMM W/CAD, UNILAT IMPRESSION: Stable unilateral diagnostic mammogram. With the history of palpable abnormality of the upper outer quadrant right breast, correlation with ultrasound is recommended. ASSESSMENT CATEGORY: BIRADS Category 0: Incomplete. Need additional imaging evaluation. A letter regarding these results will be sent to the patient by the facility within 30 days. Approximately 10% of breast cancers are not detected by mammography. A normal mammogram should not delay biopsy of a clinically suspicious abnormality. Electronically Signed: Sherif Hawkins, at 10:17 EDT , Service support ,
== END ==
PROVIDERS: PCP Family Medicine; Referring Provider Nurse Practitioner Women's Health; Visit Provider Nurse Practitioner Women's Health
DX: N63.10 Unspecified lump in the right breast, unspecified quadrant (principal)
CPT/HCPCS: 76642; 77061; 77065; G0279

== ENCOUNTER 2020-02-26 06:06 | Day surgery (SDC) | payer OTHER, SELFPAY ==
[2019-12-11 10:39] VITALS: BMI 38.0
[2020-02-06 14:13] VITALS: BMI 34.9
[2020-02-22 15:38] LABS: Hematocrit 44.4 % (37-47); Hemoglobin 14.4 g/dL (12.0-15.0); Mean Corp Hgb Conc 32.4 g/dL (32-36); Mean Corpuscular Volume 95.5 fL (81-99); Mean Platelet Vol. 10.1 fl (6.2-12.0); Platelet Count 321 K/mm3 (150-450); RBC Distribution Width CV 13.6 % (11.6-14.6); RBC Distribution Width SD 47.6 fl (35.1-43.9); Red Blood Count 4.65 M/mm3 (4.2-5.4)
[2020-02-22 16:03] LABS: Anion Gap 3 (5-15); BUN 15 mg/dL (7-18); BUN/Creat Ratio 19.5 RATIO (10-20); Calcium,Total 9.1 mg/dL (8.5-10.1); Chloride 111 mmol/L (98-107); Creatinine, Serum 0.77 mg/dL (0.55-1.02); EST Glomerular Filtration Rate 81 mL/min (>60); Est Glom Filt Rate - Afr Amer 98 mL/min (>60); Glucose 76 mg/dL (74-106); Potassium 3.8 mmol/L (3.5-5.1); Sodium Level 143 mmol/L (136-145)
[2020-02-26] VITALS (8 sets, daily range): BP systolic 150–165; BP diastolic 80–95; PULSE 61–87; RESP 16–18; TEMP 36.1–36.7; O2SAT 94–98; BMI 36.6
[2020-02-26] MEDS: Oxymetazoline 0.05% 1 SPRAY SPRAY.BTL 3 SPRAY NASAL (06:38)
[2020-02-26] MEDS: Lactated Ringers 1,000 ML 100 ML IV (06:54)
[2020-02-26] MEDS: Oxymetazoline 0.05% 1 SPRAY SPRAY.BTL 15 SPRAY (06:57)
--- NOTE | 2020-02-26 07:30 | ETH_PTH ---
PATIENT: ISMA WING LOC: [facility] U#:[id number] AGE/SX: 59/F ROOM: RE02/26/[address]: Dr. Trae Valente MD : 1960 BED: DIS: 02/26/2020 SPEC #: [id number] RECD: 02/26/20 09:48 STATUS: MICHAEL RODRIGUEZRodolfo #: [id number] YASH: 02/26/20 07:[address]: Trae Valente DEPT: SURGICAL PATHOLOGY RECD BY: Christiana Rosario ENTERED: 02/26/20 10:13 SP TYPE: ETH TISS OTHR DR: Dr. Gareth Cifuentes MD Tissues: A - Ethmoid sinus, NOS B - Ethmoid sinus, NOS Procedures: Decalcification bone/plaque Surgery Specimen Level IV HEADER OPERATION: Sphenoidotomy, total ethmoidectomy, maxillary antrostomy PRE-OP DIAGNOSIS: Chronic sinusitis TISSUE SUBMITTED: A - Right maxillary and ethmoid sinus contents, B - Left maxillary and ethmoid sinus contents MICROSCOPIC DIAGNOSIS A. Right maxillary and ethmoid sinus contents: Fragments of respiratory mucosa with chronic inflammation and bone. B. Left maxillary and ethmoid sinus contents: Fragments of respiratory mucosa with chronic inflammation and bone. DAYANA:jayla 02/29/20 MICROSCOPIC DESCRIPTION Slides are reviewed. GROSS DESCRIPTION A - Received in fixative is one container labeled with the patient's name and designated right maxillary and ethmoid sinus contents. The specimen consists of multiple fragments of hemorrhagic soft tissue mixed with possible fragments of bone that in aggregate measure 7.5 x 3 x 0.2 cm. Shank Cementer Hand tissue is submitted in two cassettes. Cassette 2 is submitted after decalcification. B - Received in fixative is one container labeled with the patient's name and designated left maxillary and ethmoid sinus contents. The specimen consists of multiple fragments of hemorrhagic soft tissue mixed with possible fragments of bone that in aggregate measure 4 x 4 x 1 cm. Shank Cementer Hand tissue is submitted in two cassettes. Cassette 2 is submitted after decalcification. / DAYANA:jayla 02/26/20 TC:3 CPT: 11406 x2, 79185 x2
--- NOTE | 2020-02-26 07:35 | DCINST_ITS ---
You will use the following diet at home:: Regular Discharge Activity: No Restrictions Additional Activity Instructions:: No noseblowing. saline 4x/day starting 02/27/20. Allergies/Adverse Reactions: Allergies No Known Allergies Allergy (Verified 02/26/20 06:31) Medications to take at Discharge Lisinopril [Zestril] 10 mg PO QHS 10/09/19 albuterol sulfate 90 mcg/actuation aerosol inhaler 2 puff INHALATION Q6H PRN 10/10/19 meloxicam 7.5 mg tablet 7.5 mg PO DAILY PRN 01/23/20 Budesonide/Formoterol 160/4.5 [Symbicort 160/4.5 Mcg Inhaler (SP)] 2 puff INHALATION BID 02/16/20 Estradiol 0.5 mg PO QHS 02/16/20 Medroxyprogesterone Acetate [Provera] 2.5 mg PO QHS 02/16/20 Primary Care Physician: Gareth Cifuentes MD [Primary Care Provider] - Test Results: Test results from this visit will be discussed in further detail at your follow- up appointment, if applicable.
--- NOTE | 2020-02-26 09:12 | PCM.OPRPT ---
Report of Operation Date of Procedure: 02/26/20 Pre-Operative Diagnosis: chronic sinusitis Post-Operative Diagnosis: same Surgery/Procedure Performed:: Bilateral total ethmoidectomy; bilateral maxillary antrostomy; bilateral sphenoidotomy; bilateral frontal sinusotomy. use of navigation Description of Surgical Findings:: chronic sinusitis Type of Anesthesia:: General Anesthesiologist: Tony Landaverde Specimen's removed: sinus contents Estimated Blood Loss (mL): minimal Description of Procedure: The patient was taken to the operating room on 02/26/20. The patient was placed in the supine position on the operating table. The patient was given sufficient general endotracheal anesthesia. The head of bed was elevated 30 degrees. The navigation system was placed and verified per protocol and found to be accurate. 0, 30, and 70 degrees rigid nasal endoscopes were used throughout the entire case. The middle turbinate uncinate process were injected with 1% lidocaine with epinephrine bilaterally. The right middle turbinate was medialized with a [place] elevator. A ball-tipped sinus seeker was placed into the patient's maxillary sinus. The uncinate process was taken down using a microdebrider. The orbit was found to be quite medial. Next, the ethmoid bulla was opened with a small curette. Anterior and posterior ethmoidectomy were then carried out using curette, sinus shaver and 45 degree Blakes[place] Theron forceps. Ethmoid cells were verified for relation to the skull base and orbit prior to being entered with the navigation system. The front face of the sphenoid was opened with a suction. Jimmy-Cut forceps were then used to widen the opening. I used giraffe forceps to remove tissue from the frontal sinus tract until mucous was suctioned from the frontal sinus. I then placed Afrin pledgets into the sinonasal cavity. Next attention was turned to the left side. The middle turbinate was medialized with a [place] elevator. The uncinate process was taken down using a sinus shaver. In doing so, the maxillary antrostomy was created. The ethmoid bulla was opened with a small curette. Anterior posterior ethmoidectomy were then carried out using a sinus shaver curette and Blakesley Theron forceps. Ethmoid cells were verified for relation to the skull base and orbit prior to being entered with the navigation system. The sphenoid was then opened on the left side using a sinus shaver and confirmed with navigation. I used giraffe forceps to remove tissue from the frontal sinus tract until mucous was suctioned from the frontal sinus. Hemostasis was then achieved using Afrin pledgets. The pledgets were then removed bilaterally and Fiona powder was applied bilaterally for absolute hemostasis. The procedure was then terminated. The patient was then awoken and brought to the recovery room in stable condition blood loss less minimal, replacement none. Sponge, needle, instrument count were correct at the end of the procedure.
== END 2020-02-26 10:57 | disposition home or self-care (01) ==
LOC: SDC 06:06 → AC 06:06
PROVIDERS: Anesthesiology; PCP Family Medicine; Referring Provider Otolaryngology; Visit Provider Otolaryngology
PROC: (CPT 31253; principal; 2020-02-26 07:00)
DX: J32.9 Chronic sinusitis, unspecified (principal); I10 Essential (primary) hypertension; Z79.899 Other long term (current) drug therapy; J45.909 Unspecified asthma, uncomplicated
CPT/HCPCS: 00160; 31253; 31256; 31257; 61782; 36415; 80048; 85027; 87635; 88305; 88311; 96365; 96366; 96375; 99218; C9803; J7120; G0378; J2405; U0003

== ENCOUNTER → 2020-03-27 15:30 | Outpatient (CLI) | payer OTHER, SELFPAY ==
[2020-02-26 06:35] VITALS: BMI 36.6
== END ==
PROVIDERS: PCP Family Medicine; Visit Provider Otolaryngology
DX: J01.90 Acute sinusitis, unspecified (principal)
CPT/HCPCS: 87070; 87077; 87205

== ENCOUNTER → 2020-04-10 15:01 | Outpatient (CLI) | payer OTHER, SELFPAY ==
[2020-02-26 06:35] VITALS: BMI 36.6
[2020-04-13 20:07] LABS: IgG, Quant 1264 mg/dL (586-1602); Immunoglobulin E 1142 IU/mL (6-495); Immunoglobulin G, Subclass 1 763 mg/dL (248-810); Immunoglobulin G, Subclass 2 363 mg/dL (130-555); Immunoglobulin G, Subclass 3 39 mg/dL (15-102); Immunoglobulin G, Subclass 4 47 mg/dL (2-96)
[2020-04-14 04:35] LABS: Immunoglobulin A 285 mg/dL (87-352)
== END ==
PROVIDERS: PCP Family Medicine; Referring Provider Otolaryngology; Visit Provider Otolaryngology
DX: J32.9 Chronic sinusitis, unspecified (principal)
CPT/HCPCS: 36415; 82784; 82785; 82787

== ENCOUNTER → 2020-05-30 14:28 | Outpatient (CLI) | payer OTHER, SELFPAY ==
[2020-02-26 06:35] VITALS: BMI 36.6
== END ==
PROVIDERS: PCP Family Medicine; Referring Provider Otolaryngology; Visit Provider Otolaryngology
DX: Z01.818 Encounter for other preprocedural examination (principal)
CPT/HCPCS: 87635; C9803; U0005; U0003

== ENCOUNTER → 2020-06-19 12:47 | Outpatient (CLI) | payer OTHER, SELFPAY ==
[2020-02-26 06:35] VITALS: BMI 36.6
--- NOTE | 2020-06-19 14:04 | CT_ITS ---
STUDY: CT CHEST WITHOUT CONTRAST REASON FOR EXAM: Female, 59 years old. ASTHMA RADIATION DOSAGE (If Supplied By Facility): CTDIvol = ( 19.75 ) mGy, DLP = ( 695.99 ) mGycm TECHNIQUE: Transaxial imaging was performed without the administration of intravenous contrast material. Multiplanar coronal and sagittal images were reformatted. Individualized dose optimization techniques were used for this CT. COMPARISON: Comparison is made with prior study dated 10/09/2019. FINDINGS: Stable small benign appearing lateral axillary lymph nodes. The lungs are normal. There is no demonstrated pleural abnormality. There are calcifications of the coronary arteries. Normal mediastinum. Normal hilar regions. Normal unenhanced pulmonary arteries. Normal aorta arch and descending thoracic aorta. There are multi-level degenerative changes of the thoracic spine. Small hiatal hernia. Cholelithiasis. CT/Chest without Contrast IMPRESSION: Stable examination. Electronically Signed: Sherif Hawkins MD at 14:58 EST , Service support ,
--- NOTE | 2020-06-20 12:56 | PFT ---
INTRODUCTION: The patient is a 59-year-old female that presents for pulmonary function studies secondary to a diagnosis of asthma. Respiratory therapy reports good patient effort. Bronchodilators were used during testing. INTERPRETATION: Forced expiration spirometry demonstrates no evidence of a large airways obstructive ventilatory defect. There was no significant response to aerosolized bronchodilators, based upon strict ATS criteria. Spirograms are of good quality and plateau normally. Body plethysmography was performed and reveals lung volumes to be within normal limits. Diffusing capacity by single breath CO is also within normal limits. IMPRESSION: Grossly normal pulmonary function studies.
== END ==
PROVIDERS: PCP Family Medicine
DX: J45.909 Unspecified asthma, uncomplicated (principal)
CPT/HCPCS: 71250; 94060; 94726; 94729

== ENCOUNTER 2020-07-24 13:13 | Outpatient (CLI) | payer OTHER, SELFPAY ==
[2020-02-26 06:35] VITALS: BMI 36.6
[2020-07-24 13:33] VITALS: BP 134/82; PULSE 89; RESP 18; TEMP 36.5; O2SAT 95; BMI 36.6
[2020-07-24 16:29] VITALS: BP 150/81; PULSE 76; RESP 16; TEMP 36.6; O2SAT 93
== END 2020-07-24 16:35 | disposition home or self-care (01) ==
LOC: MEDOUTP 13:14
PROVIDERS: PCP Family Medicine
DX: J45.50 Severe persistent asthma, uncomplicated (principal)
CPT/HCPCS: 96372; J2357

== ENCOUNTER → 2021-03-07 07:07 | Outpatient (CLI) | payer OTHER, SELFPAY ==
--- NOTE | 2021-03-06 16:04 | BI_ITS ---
MAMMOGRAPHY - BILATERAL SCREENING REASON FOR EXAM: Female, 60 years old. Routine annual screening examination. PERTINENT HISTORY: Non-contributory. TECHNIQUE: Digital bilateral breast kalyn (3D mammographic acquisition) in the CC and MLO projections. 2-D mediolateral oblique (MLO) and craniocaudad (CC) views of both breasts were obtained. CAD: Full Field Digital Mammography with Computer Added Detection was performed. COMPARISON: Comparison is made with prior study dated 09/20/2019 and 08/01/2018. FINDINGS: Breast Composition: The breasts are almost entirely fatty. There are no dominant masses or suspicious calcifications. Stable appearance of the small benign-appearing bilateral axillary lymph nodes. No other significant abnormalities are identified. There has been no significant change since the prior study. BI/SCRN MAMM (CAD)W/KALYN BILAT IMPRESSION: Stable bilateral screening mammogram. Yearly follow-up mammogram recommended. (A) ASSESSMENT CATEGORY: BIRADS Category 2: Benign. A letter regarding these results will be sent to the patient by the facility within 30 days. Approximately 10% of breast cancers are not detected by mammography. A normal mammogram should not delay biopsy of a clinically suspicious abnormality. [id number] Electronically Signed: Sherif Hawkins MD at 8:44 EST , Service support ,
== END ==
PROVIDERS: PCP Family Medicine; Referring Provider Nurse Practitioner Women's Health; Visit Provider Nurse Practitioner Women's Health
DX: Z12.31 Encounter for screening mammogram for malignant neoplasm of breast (principal)
CPT/HCPCS: 77063; 77067

== ENCOUNTER → 2022-03-09 | Outpatient (CLI) | payer OTHER, SELFPAY ==
--- NOTE | 2022-03-09 13:49 | BI_ITS ---
MAMMOGRAPHY - BILATERAL SCREENING REASON FOR EXAM: Female, 61 years old. Routine annual screening examination. PERTINENT HISTORY: Non-contributory. TECHNIQUE: Digital bilateral breast kalyn (3D mammographic acquisition) in the CC and MLO projections. 2-D mediolateral oblique (MLO) and craniocaudad (CC) views of both breasts were obtained. CAD: Full Field Digital Mammography with Computer Added Detection was performed. COMPARISON: Comparison is made with prior study of 03/06/2021 and 01/26/2020. FINDINGS: Breast Composition: The breasts are almost entirely fatty. There are no dominant masses or suspicious calcifications. Stable small benign-appearing bilateral axillary lymph nodes. No other significant abnormalities are identified. There has been no significant change since the prior study. BI/SCRN MAMM (CAD)W/KALYN BILAT IMPRESSION: Stable bilateral screening mammogram. Yearly follow-up mammogram recommended. (A) ASSESSMENT CATEGORY: BIRADS Category 2: Benign. A letter regarding these results will be sent to the patient by the facility within 30 days. Approximately 10% of breast cancers are not detected by mammography. A normal mammogram should not delay biopsy of a clinically suspicious abnormality. [id number] Electronically Signed: Sherif Hawkins MD at 14:42 EST ,
== END | disposition home or self-care (01) ==
LOC: OPBI 13:47
PROVIDERS: PCP Family Medicine; Visit Provider Nurse Practitioner Women's Health
DX: Z12.31 Encounter for screening mammogram for malignant neoplasm of breast (principal)
CPT/HCPCS: 77063; 77067

== ENCOUNTER → 2023-04-30 | Outpatient (CLI) | payer OTHER, SELFPAY ==
--- NOTE | 2023-04-30 13:11 | BI_ITS ---
MAMMOGRAPHY - BILATERAL SCREENING REASON FOR EXAM: Female, 62 years old. Routine annual screening examination. PERTINENT HISTORY: Non-contributory. TECHNIQUE: Digital bilateral breast kalyn (3D mammographic acquisition) in the CC and MLO projections. 2-D mediolateral oblique (MLO) and craniocaudad (CC) views of both breasts were obtained. CAD: Full Field Digital Mammography with Computer Added Detection was performed. COMPARISON: Comparison is made with prior study dated March 09, 2022 and March 06, 2021. FINDINGS: Breast Composition: The breasts are almost entirely fatty. There are no dominant masses or suspicious calcifications. Stable benign appearing bilateral axillary lymph nodes. No other significant abnormalities are identified. There has been no significant change since the prior study. BI/SCRN MAMM (CAD)W/KALYN BILAT IMPRESSION: Stable bilateral screening mammogram. Yearly follow-up mammogram recommended. (A) ASSESSMENT CATEGORY: BIRADS Category 2: Benign. A letter regarding these results will be sent to the patient by the facility within 30 days. Approximately 10% of breast cancers are not detected by mammography. A normal mammogram should not delay biopsy of a clinically suspicious abnormality. [id number] Electronically Signed: Sherif Hawkins MD at 15:32 EST ,
--- OUTSIDE RECORDS SUMMARY | 2023-04-30 13:32 | XMS RPT_ITS | CCD ---
Author Name Unknown Address [address] [place] [address] Organization [facility] Care Team Providers Care Household Appliance Mechanic Name Role Phone JANAE LEGGETT Primary Care Unavailable KEVIN ACOSTA Attending Unavailable KEVIN ACOSTA Referring Unavailable LEGGETT, JANAE Amaya Primary Care Unavailable LUZMA NIELSEN Admitting Unavailable LUZMA NIELSEN Attending Unavailable JANAE LEGGETT Primary Care Unavailable SELF, SELF Referring Unavailable LUZMA NIELSEN Attending Unavailable JANAE LEGGETT Primary Care Unavailable SELF, SELF Referring Unavailable LUZMA NIELSEN Attending Unavailable LEGGETT, JANAE Amaya Primary Care Unavailable SELF, SELF Referring Unavailable OLEKSANDR, JANAE Amaya Primary Care Unavailable CHAPINCITO REBOLLAR Attending Unavailable SELF, SELF Referring Unavailable SELF, SELF Referring Unavailable LUZMA NIELSEN Attending Unavailable LEGGETT, JANAE Amaya Primary Care Unavailable YOANA KAY DO Primary Care Physician YOANA KAY DO Attending Unavailable YOANA KAY DO Primary Care Unavailable Allergies Allergy Classification Reported Allergen(s) Allergy Type Date of Onset Reaction(s) Facility (1 source) omalizumab; Translations: [omalizumab] Drug Allergy Hives [facility] Medications Current Medications Medication Drug Class(es) Dates Sig (Normalized) Sig (Original) estradiol 0.5 mg oral tablet (1 source) Estrogen Start: 3 estradiol 0.5 mg oral tablet Dose : 0.5 mg = 1 tab(s), take 1/2 tablet by mouth at bedtime for HORMONE(S) Start Date: 06/08/22 Status: Ordered hydroCHLOROthiazide 12.5 mg / lisinopril 10 mg oral tablet (1 source) Thiazide Diuretic, Angiotensin Converting Enzyme Inhibitor Start: 3 take 1 tablet by mouth once daily hydrochlorothiazide-li sinopril 12.5 mg-10 mg oral tablet Dose = 1 tab(s), Oral, Daily, # 90 tab(s), 0 Refill(s) Start Date: 06/08/22 Status: Ordered medroxyPROGESTERone acetate 2.5 mg oral tablet (1 source) Progestin Start: 3 take 1 tablet by mouth at bedtime medroxyPROGESTERone 2.5 mg oral tablet take 1 tablet by mouth at bedtime for HORMONE(S) Start Date: 06/08/22 Status: Ordered montelukast 10 mg oral tablet (1 source) Leukotriene Receptor Antagonist Start: 3 take 1 tablet by mouth once daily montelukast 10 mg oral tablet take 1 tablet by mouth once daily Start Date: 06/08/22 Status: Ordered Symbicort 160 mcg-4.5 mcg/inh Inhaler (1 source) Start: 3 take 2 puff(s) by mouth every twelve hours Symbicort 160 mcg-4.5 mcg/inh Inhaler inhale 2 puffs by mouth and INTO THE LUNGS every 12 hours Start Date: 06/08/22 Status: Ordered Problems Active Problems Problem Classification Problem Date Documented Da te Episodic/Chronic Asthma (1 source) Severe persistent allergic asthma 06-08-2022 Chronic Essential hypertension (2 sources) Essential hypertension; Translations: [Essential (primary) hypertension] Chronic Other connective tissue disease (2 sources) Presence of right artificial hip joint; Translations: [Presence of right artificial hip joint] Onset: 06-10-2021 Chronic Other connective tissue disease (2 sources) Presence of right artificial knee joint; Translations: [Presence of right artificial knee joint] Onset: 05-29-2021 Chronic Other upper respiratory infections (2 sources) Chronic sinusitis; Translations: [Recurrent sinusitis] 06-08-2022 Chronic Past or Other Problems Problem Classification Problem Date Documented Date Episodic/Chronic Residual codes; unclassified (2 sources) Other specified postprocedural states; Translations: [Other specified postprocedural states] Onset: 05-30-2021 Episodic Results Test Name Value Interpretation Reference Range Facil ity Encounters Encounter Date Encounter Type Care Provider Facility Start: 06-08-2022 End: 06-09-2022 ambulatory YOANA KAY DO Facility:[facility] Start: 06-08-2022 End: 06-08-2022 Patient encounter procedure YOANA KAY DO [facility] Start: 06-08-2022 End: 06-08-2022 Well adult monitoring check done YOANA KAY DO [facility] Start: 05-22-2022 ambulatory JANAE LEGGETT Facility :[facility] Start: 06-10-2021 ambulatory LUZMA NIELSEN Facili ty:[facility] Start: 05-30-2021 ambulatory LUZMA NIELSEN Facilelie ty:[facility] Start: 05-29-2021 End: 05-29-2021 ambulatory JANAE LEGGETT Facility:[facility] Start: 05-28-2021 ambulatory JANAE LEGGETT Facility :[facility] Start: 05-28-2021 Encounter for other preprocedural examination JANAE LEGGETT Facility:[facility] Start: 05-26-2021 ambulatory JANAE LEGGETT Facility :[facility] Procedures Date Procedure Procedure Detail Performing Clinician Start: 04-26-2021 Structure of left kn ee (body structure) YOANA KAY DO Immunizations Immunization Date Immunization Notes Care Provider Grace flowers 06-08-2022 influenza, injectabl e, quadrivalent, contains preservative; Translations: [Fluarix PF Quadrivalent ] YOANA KAY DO [facility] 03-21-2021 SARS-CoV-2 mRNA (tozinameran) vaccine YOANA KAY DO [facility] 02-26-2021 SARS-CoV-2 mRNA (tozinameran) vaccine YOANA KAY DO [facility] Payers Date Payer Category Payer Unknown [id number] 2019 Unknown [id number] 1959 Unknown [id number] 2.16. [id number] 1959 Unknown [id number] 2.16. [id number] 1959 Unknown [id number] 2.16. [id number] 1959 Unknown [id number] 2.16. [id number] 1959 Unknown [id number] 2.16. [id number] 1959 Unknown [id number] 2.16. [id number] 1959 Unknown [id number] 2.16. [id number] 1959 Unknown [id number] [id number] Social History Date Type Detail Facility Start: 07-21-2019 Tobacco smoking status Never s moked tobacco (finding) [facility] Sex Assigned At Sex [facility] Evaluation + Plan note 06-08-2022 Note Date & Type Note Facility 06-08-2022 Evaluation + Plan note Diagnostic Tests PendingHepatitis C Antibody IgG 06/08/22 [facility] Hospital course Narrative Note Date & Type Note Facility Hospital course Narrative No data available for this section [facility] Hospital Discharge instructions Note Date & Type Note Facility Hospital Discharge instructions No data available for this section [facility] Progress note Note Date & Type Note Facility Progress note No data available for this section [facility] Summary Purpose Family History No Family History Records FoundNo Family History Records Found Advance Directives No Advanced Directives Records FoundNo Advanced Directives Records Found Additional Source Comments INFORMATION SOURCE (unrecogn ized section and content) DATE CREATED AUTHOR AUTHOR'S ORGANIZ ATION 06/10/2022 [facility] Care Team (unrecognized sect ion and content) Care Team Personnel Name: YOANA KAY DO Position: P4 Physician - Primary Care Member Role: Primary Care Physician Address: Address: [address] [facility] [place], [place] [address] Care Team Related Persons Name: ALMAS WING FOR RECORDS PERTAINING TO PATIENTS WHO ARE OR HAVE BEEN ENROLLED IN A CHEMICAL DEPENDENCY/SUBSTANCEABUSE PROGRAM, SOME INFORMATION MAY BE OMITTED. This clinical summary was aggregated from multiple sources. Caution should be exercised in using it in the provision of clinical care. This summary normalizes information from multiple sources, and as a consequence, information in this document may materially change the coding, format and clinical context of patient data. In addition, data may be omitted in some cases. CLINICAL DECISIONS SHOULD BE BASED ON THE PRIMARY CLINICAL RECORDS. [facility] [facility] provides no warranty or guarantee of the accuracy or completeness of information in this document.
== END | disposition home or self-care (01) ==
LOC: OPBI 13:09
PROVIDERS: Referring Provider Nurse Practitioner Women's Health; Visit Provider Nurse Practitioner Women's Health
DX: Z12.31 Encounter for screening mammogram for malignant neoplasm of breast (principal)
CPT/HCPCS: 77063; 77067